=== PATIENT | male | born 1970 | race Caucasian/White ===

== ENCOUNTER → 2020-12-11 14:25 | Outpatient (CLI) | payer OTHER, SELFPAY ==
[2016-01-09 01:22] VITALS: BMI 25.0
--- NOTE | 2020-12-11 14:34 | RAD_ITS ---
STUDY: X-RAY - LUMBAR SPINE REASON FOR EXAM: Male, 50 years old. BACK PAIN FOR 10 YEARS BUT GETTING WORSE RECENTLY. NO KNOWN INJURY. TECHNIQUE: 3 view(s) of the lumbar spine were obtained. COMPARISON: Comparison is made with prior study dated 12/28/2013 FINDINGS: Normal lumbar lordosis. There is no substantial scoliosis. There is a normal alignment of the vertebrae. Normal vertebral bodies and endplates. Normal disc space heights. Moderate amount of material is seen RAD/L/S Spine Min 4 Views IMPRESSION: Moderate amount of fecal material is seen in Electronically Signed: Bravo Newell MD at 14:58 EST , Service support ,
== END ==
PROVIDERS: PCP Family Medicine; Referring Provider Family Medicine; Visit Provider Family Medicine
DX: M54.5 Low back pain (principal)
CPT/HCPCS: 72110

== ENCOUNTER 2022-09-26 23:51 | Emergency (ER) | payer OTHER, SELFPAY ==
[2022-09-26 23:51] VITALS: BP 156/96; PULSE 92; RESP 18; TEMP 36.5; O2SAT 99; BMI 25.4
[2022-09-26 23:55] VITALS: BP 156/96; PULSE 89; RESP 18; TEMP 36.5; O2SAT 98
[2022-09-26 23:57] VITALS: TEMP 36.5; O2SAT 96
--- NOTE | 2022-09-27 00:48 | EDS_ITS ---
HPI HPI - Fall History of Present Illness Chief Complaint: Fall Occured/Mechanism Occurred: Today Mechanism/Context: Yes same level fall and Yes trip Usually ambulates: Without assistance Pain/Injury Pain Location: face, upper extremity (Bilateral hands) and lower extremity (Right knee) Quality of Pain: Burning Worsened by: Nothing Relieved by: Nothing Associated Symptoms Associated Symptoms: Negative for Parasthesias, Weakness, Loss of function, Inability to ambulate, Loss of consciousness or Amnesia Narrative Narrative: Patient presents with a fall that occurred tonight. Patient states they were people in his yard and he went outside to adriel them away. Patient states he tripped and fell forward. Patient states he hit his chin and face. Patient also admits to some pain in his right thumb and left third and fourth fingers. Patient states he feels like he scraped his right knee as well. Patient denies any loss of consciousness. Patient was able to ambulate immediately after the fall. Patient denies any paresthesias or weakness. Patient is unsure of his last tetanus. Tetanus Immunization: Unknown [facility] Medical History (Updated 09/27/22 @ 01:[address] Gavino Davison DO) No acute medical problems Medical History no medical history no medical history Home Medications NK 09/26/22 [History Last Taken Unknown] Allergy/AdvReac Type Severity Reaction Status Date / Time No Known Allergies Allergy Verified 09/26/22 23:56 Surgical History (Updated 09/27/22 @ 00:[address] Gavino Davison DO) History of herniorrhaphy S/P excision of varicocele Social History Smoking Status: Never smoker ROS ROS ED Constitutional Constitutional ED: Denies chills or fever(s) Eyes Eyes: Denies blurry vision or change in vision ENT ENT ED: Denies rhinorrhea or sore throat Cardiovascular Cardiovascular: Denies chest pain or palpitations Respiratory/Chest Respiratory/Chest: Denies cough or dyspnea Gastrointestinal Gastrointestinal: Denies nausea or vomiting Genitourinary Genitourinary ED: Denies dysuria or hematuria Musculoskeletal Musculoskeletal: Denies back pain or neck pain Integumentary Denies abscess or rash Neurologic Neurologic: Denies headache(s) or weakness Allergic/Immunologic Allergic/Immunologic ED: Denies mouth swelling or urticaria EXAM Physical Exam Const Vital Signs: 09/26/22 23:51 09/26/22 23:55 09/26/22 23:57 Temperature 97.7 F L 97.7 F L 97.7 F L Temperature Source Temporal Temporal Pulse Rate 92 89 Respiratory Rate 18 18 Respiratory Effort Normal Non-Labored Respiratory Depth Normal Respiratory Pattern Normal Blood Pressure 156/96 H 156/96 H Blood Pressure Mean 116 116 Pulse Ox 99 98 96 Oxygen Delivery Method Room Air Room Air Room Air Positive well nourished and well developed General Appearance ED: well developed and NAD HEENT Reports TM's normal bilaterally and moist mucous membranes HEENT Narrative: There is an abrasion over the tip of the nose. There is no septal deviation or septal hematoma. There is a 3 cm laceration on the chin. There is mild gapping of the wound margins. There is no bony crepitance or step-off. There is some mild bleeding. There are no foreign bodies noted. Neck no lymphadenopathy, supple and no JVD Resp normal respiratory effort and clear to auscultation bilaterally Cardio regular rate, regular rhythm and no murmurs GI normal to inspection, nondistended, normoactive bowel sounds and non-tender Palpation: soft Extremity Extremity Narrative: There is tenderness, edema, and ecchymosis over the distal phalanx of the right thumb. There is no obvious deformity. Range of motion was slightly limited in flexion extension of the IP joint of the right thumb. There are superficial abrasions noted over the dorsal aspect of the left third and fourth DIP joints. There is no bleeding noted. There are no foreign bodies noted. There is good range of motion. Radial pulses are equal bilaterally. Capillary refill is less than 2 seconds in all digits. Sensation was intact to light touch in all digits. Neuro oriented x3, CN's II-XII intact bilaterally, moves all extremities, no focal motor deficits and no sensory deficits noted Sensorium / Orientation: alert Motor Exam: strength 5/5 throughout Psych mental status grossly normal Skin no rashes or lesions noted Trauma: abrasion MDM MDM MDM Narrative Medical decision making narrative: Patient was given a tetanus booster. X-rays of the right thumb were obtained. There are 3 views. On my interpretation, there is a nondisplaced transverse fracture through the shaft of the distal phalanx. There is some comminution into the articular surface. Radiologist also interpreted the x-rays and agrees. Patient was given an aluminum foam splint. The wound was cleaned and irrigated with copious amounts of normal saline. The wound was anesthetized with 1% plain lidocaine locally. The wound was closed with 5 simple interrupted #3-0 nylon sutures under sterile technique. Patient tolerated the procedure well. Bacitracin dressing was applied. Bacitracin dressings were applied to the abrasions as well. Patient was given head injury instructions. Patient was instructed to follow-up with his primary care physician in 5 days for wound recheck and suture removal. Patient was instructed to return if worse in any way. Patient understood and was agreeable with the plan. All questions were answered. Procedures Lacerations Chin: Length: 3 cm Depth: Sub Q Shape: Linear Prep: Sterile Conditions and Chlorhexadine Laceration repair: Irrigated, Lidocaine, Local and Skin sutures Irrigated (ml): 60 Number of Sutures/[place]: 5 Suture Information: Ethilon and - (3-0) Discharge Plan Triage Chief Complaint: Fall ED Provider: Gavino Davison Dx/Rx/DC Orders Clinical Impression: Laceration of chin, Closed fracture of distal phalanx of right thumb, Multiple abrasions, Head injury, Contusion of jaw Instructions: ED Laceration, Chin, Suture or Tape, ED Head Injury (Adult), ED Fracture, Thumb Prescriptions: No Action NK Primary Care Provider: Angela Carolina Referrals: Angela Carolina MD [Primary Care Provider] - 5 Days for suture removal Disposition Disposition: Home, Self Care
[2022-09-27] MEDS: Diphth,Pertuss(Acell),Tet Vac 0.5 ML Vial IM (01:09)
[2022-09-27] MEDS: Lidocaine/Epi/Tetracaine 50 ML 1 APPLIC TOPICAL (01:10)
--- NOTE | 2022-09-27 01:22 | RAD_ITS ---
INDICATION: Injury/Pain EXAMINATION/TECHNIQUE: X-RAY - RIGHT HAND XR Fingers Min 2 Views 3 VIEWS COMPARISON: None. FINDINGS: SOFT TISSUES: Diffuse edema. No radiopaque foreign body. BONES/JOINTS: First distal phalanx transverse fracture just proximal to nailbed with 1.5 mm volar displacement of the distal fragment. No dislocation.. Preservation of the joint space.. No sclerotic or destructive changes observed. RAD/Finger(s) Min 2 Views IMPRESSION: Minimally displaced 1st distal phalanx fracture Electronically Signed: Eliud Moore MD at 1:57 EST ,
[2022-09-27] MEDS: Lidocaine 1% /Epi 1:100 (20ml) 20 ML Vial INFILT (02:34)
== END 2022-09-27 02:34 | disposition home or self-care (01) ==
PROVIDERS: Emergency Provider Emergency Medicine; PCP Family Medicine; Visit Provider Emergency Medicine
DX: S01.81XA Laceration without foreign body of other part of head, initial encounter (principal); M25.561 Pain in right knee; S62.521A Displaced fracture of distal phalanx of right thumb, initial encounter for closed fracture; W01.0XXA Fall on same level from slipping, tripping and stumbling without subsequent striking against object, initial encounter; Z23 Encounter for immunization
CPT/HCPCS: 12013; 73140; 90715; 99284

== ENCOUNTER → 2024-03-21 | Outpatient (CLI) | payer OTHER, SELFPAY ==
[2024-03-21 12:10] LABS: Absolute Lymphocyte Count 1.44 X10^3/uL (0.83-4.51); Absolute Neutrophil Count 2.4 X10^3/uL (2.0-7.7); Basophil# 0.02 X10^3/uL; Basophil% 0.4 % (0-1); Eosinophil# 0.17 X10^3/uL; Eosinophils% 3.7 % (0-5); Hematocrit 43.4 % (40-54); Hemoglobin 14.1 g/dL (13.0-16.5); Lymphocyte # 1.44 X10^3/ul (0.83-4.51); Lymphocyte % 31.7 % (19-41); Mean Corp Hgb Conc 32.5 g/dL (32-36); Mean Corpuscular Hgb 29.4 pg (27.0-32.0); Mean Corpuscular Volume 90.6 fL (80-94); Mean Platelet Vol. 10.2 fl (6.2-12.0); Monocyte# 0.48 X10^3/uL; Monocyte% 10.6 % (0-10); NRBC Flagged by Analyzer 0 % (0-5); Neutrophil # 2.42 X10^3/uL (2.7-7.7); Neutrophil % 53.4 % (47-70); Platelet Count 241 K/mm3 (150-450); RBC Distribution Width CV 13.6 % (11.6-14.6); RBC Distribution Width SD 45.8 fl (35.1-43.9); Red Blood Count 4.79 M/mm3 (4.6-6.2); White Blood Count 4.5 K/mm3 (4.4-11.0)
[2024-03-21 12:34] LABS: AST(SGOT) 41 U/L (15-37); Alanine Aminotransfer ALT/SGPT 40 U/L (16-61); Albumin, Serum 3.6 g/dL (3.2-5.0); Alkaline Phosphatase 60 U/L (45-117); Anion Gap 2 (5-15); BUN 15 mg/dL (7-18); BUN/Creat Ratio 18.9 RATIO (10-20); Calcium,Total 8.8 mg/dL (8.5-10.1); Chloride 109 mmol/L (98-107); Cholesterol 182 mg/dL (200); Creatinine, Serum 0.79 mg/dL (0.70-1.30); EST Glomerular Filtration Rate 108 mL/min (>60); Est Glom Filt Rate - Afr Amer 130 mL/min (>60); Globulin 3.6 g/dL (2.2-4.2); Glucose 88 mg/dL (74-106); High Density Lipoprotein 48 mg/dL; Potassium 4.2 mmol/L (3.5-5.1); Protein, Total 7.2 g/dL (6.4-8.2); Sodium Level 140 mmol/L (136-145); Triglycerides 39 mg/dL; Very Low Density Lipoprotein 8 mg/dL (5-40)
== END | disposition home or self-care (01) ==
LOC: BIMLAB 09:21
PROVIDERS: PCP Internal Medicine; Visit Provider Internal Medicine
DX: Z13.6 Encounter for screening for cardiovascular disorders (principal); M54.42 Lumbago with sciatica, left side; G89.29 Other chronic pain
CPT/HCPCS: 36415; 80053; 80061; 85025

== ENCOUNTER → 2025-01-09 | Outpatient (CLI) | payer OTHER, SELFPAY ==
[2025-01-09 13:29] LABS: Absolute Lymphocyte Count 1.73 X10^3/uL (0.83-4.51); Absolute Neutrophil Count 2.3 X10^3/uL (2.0-7.7); Basophil# 0.03 X10^3/uL; Basophil% 0.6 % (0-1); Eosinophil# 0.26 X10^3/uL; Eosinophils% 5.4 % (0-5); Hematocrit 44.7 % (40-54); Hemoglobin 14.8 g/dL (13.0-16.5); Lymphocyte # 1.73 X10^3/ul (0.83-4.51); Lymphocyte % 36.2 % (19-41); Mean Corp Hgb Conc 33.1 g/dL (32-36); Mean Corpuscular Hgb 29.5 pg (27.0-32.0); Mean Corpuscular Volume 89.2 fL (80-94); Mean Platelet Vol. 10.3 fl (6.2-12.0); Monocyte# 0.47 X10^3/uL; Monocyte% 9.8 % (0-10); NRBC Flagged by Analyzer 0 % (0-5); Neutrophil # 2.28 X10^3/uL (2.7-7.7); Neutrophil % 47.8 % (47-70); Platelet Count 263 K/mm3 (150-450); RBC Distribution Width CV 13.5 % (11.6-14.6); RBC Distribution Width SD 44.5 fl (35.1-43.9); Red Blood Count 5.01 M/mm3 (4.6-6.2); White Blood Count 4.8 K/mm3 (4.4-11.0)
[2025-01-09 13:32] LABS: Cholesterol 211 mg/dL (<=200); High Density Lipoprotein 49 mg/dL; Low Density Lipoprotein Calc. 148 mg/dL; Triglycerides 71 mg/dL; Very Low Density Lipoprotein 14 mg/dL (5-40)
[2025-01-09 15:57] LABS: ALB/GLOB Ratio 1.5 RATIO (0.9-2.4); AST(SGOT) 34 U/L (<=37); Alanine Aminotransfer ALT/SGPT 40 U/L (<=46); Albumin, Serum 4.3 g/dL (3.5-5.0); Alkaline Phosphatase 71 U/L (40-129); Anion Gap 9 (5-15); BUN 14 mg/dL (4-19); BUN/Creat Ratio 17.7 RATIO (10-20); Calcium 9.4 mg/dL (7.6-11.0); Chloride 107 mmol/L (96-108); EST Glomerular Filtration Rate 104 (>60); Globulin 2.8 g/dL (2.2-4.2); Glucose 91 mg/dL (70-99); Potassium 4.9 mmol/L (3.3-5.1); Protein, Total 7.1 g/dL (5.9-8.4); Sodium Level 141 mmol/L (133-145); Total Bilirubin 0.42 mg/dL (0.00-1.30)
== END | disposition home or self-care (01) ==
LOC: BIMLAB 09:17
PROVIDERS: PCP Internal Medicine; Visit Provider Internal Medicine
DX: I10 Essential (primary) hypertension (principal)
CPT/HCPCS: 36415; 80053; 80061; 85025

== ENCOUNTER → 2025-09-04 | Outpatient (CLI) | payer OTHER, SELFPAY ==
[2025-09-04 10:28] LABS: Cholesterol 218 mg/dL (<=200); Low Density Lipoprotein Calc. 159 mg/dL; Triglycerides 96 mg/dL; Very Low Density Lipoprotein 19 mg/dL (5-40); cholesterol:hdl ratio screen 5.27
== END | disposition home or self-care (01) ==
LOC: LAB 08:48
PROVIDERS: PCP Internal Medicine
DX: E78.2 Mixed hyperlipidemia (principal)
CPT/HCPCS: 36415; 80061